=== PATIENT | male | born 2005 | race African-American/Black ===

== ENCOUNTER 2024-01-03 12:46 | Emergency (ER) | payer MEDICAID, SELFPAY ==
[2024-01-03 12:46] VITALS: BP 120/79; PULSE 89; RESP 16; TEMP 36.6; O2SAT 99; BMI 35.4
--- NOTE | 2024-01-03 13:00 | RAD_ITS ---
EXAM: XR LEFT ANKLE COMPLETE, 3 OR MORE VIEWS CLINICAL INDICATION: Left ankle injury with pain and swelling during football game yesterday. TECHNIQUE: Frontal, lateral and oblique views of the left ankle. COMPARISON: No relevant prior studies available. FINDINGS: BONES/JOINTS: Unremarkable. No acute fracture. No subluxation. Normal alignment. Preservation of the joint space. No sclerotic or destructive changes observed. SOFT TISSUES: Soft tissue swelling around the ankle. No radiopaque foreign body. RAD/Ankle min 3 Views IMPRESSION: No acute fracture or dislocation of the left ankle.. Electronically Signed: Mario Masters MD at 13:23 EST ,
--- NOTE | 2024-01-03 13:09 | ED.VIS.LOWEX ---
HPI History of Present Illness Chief Complaint: Lower Extremity Injury Informant: patient Narrative Narrative: 18-year-old male presenting to the emergency room with a chief complaint of left ankle injury. Patient states he was playing football yesterday when he was tackled sustaining injury to the distal medial left leg. He denies any pain up near his knee. He notes swelling. Has been using Lopez wrap. Was recommended he obtain x-rays. He has been able to bear weight. PFSH PFS Home Medications ?Medication ?Instructions ?Recorded ?Last Taken ?Type NK 01/03/24 Unknown History Allergy/AdvReac Type Severity Reaction Status Date / Time cashew nut Allergy Hives Verified 01/03/24 12:48 walnut Allergy HIVES Verified 01/03/24 12:48 Social History Smoking Status: Never smoker ROS ROS ED Constitutional Constitutional ED: Denies chills, fever(s) or weight loss Eyes Eyes: Denies change in vision or diplopia ENT ENT ED: Denies ear pain, rhinorrhea or sore throat Cardiovascular Cardiovascular: Denies chest pain, orthopnea, palpitations or racing heartbeat Respiratory/Chest Respiratory/Chest: Denies cough, dyspnea or orthopnea Gastrointestinal Gastrointestinal: Denies abdominal pain, diarrhea, nausea or vomiting Genitourinary Genitourinary ED: Denies dysuria, hematuria or urinary frequency Musculoskeletal Musculoskeletal: Reports other Details: See history of present illness ; Denies arthralgias or myalgias Integumentary Denies abscess or rash Neurologic Neurologic: Denies headache(s) or weakness Psychiatric Psychiatric: Denies anxiety, depression, suicidal ideation or suicidal thoughts Endocrine Endocrinology: Denies polydipsia, polyphagia or polyuria Allergic/Immunologic Allergic/Immunologic ED: Denies mouth swelling, tongue swelling or urticaria EXAM Physical Exam Const Vital Signs: 01/03/24 12:46 01/03/24 13:40 Temperature 97.9 F 97.9 F Temperature Source Oral Pulse Rate 89 89 Respiratory Rate 16 16 Blood Pressure 120/79 120/79 Blood Pressure Mean 92 92 Pulse Ox 99 99 Oxygen Delivery Method Room Air Positive well nourished and well developed General Appearance ED: well developed and NAD HEENT Reports normocephalic, head/scalp atraumatic and moist mucous membranes Eyes PERRL and EOMs intact bilaterally Neck no lymphadenopathy, supple and no JVD Resp normal respiratory effort and clear to auscultation bilaterally Cardio regular rate, regular rhythm and no murmurs GI normal to inspection, nondistended, normoactive bowel sounds and non-tender Palpation: soft Back/Spine no CVA tenderness and normal ROM Extremity Extremity Narrative: Patient has swelling and tenderness over the medial malleolus and extending down onto the medial foot. No fibular head tenderness. No fifth metatarsal pain. Achilles palpates and functionally is intact. Distally the toes are intact with no motor or sensory changes. Normal skin color. General Extremety ED: Negative for edema General Extremity: Negative for edema Neuro oriented x3 and CN's II-XII intact bilaterally Sensorium / Orientation: alert Motor Exam: strength 5/5 throughout Psych mental status grossly normal Mood & Affect: Negative for depressed or tearful Skin no rashes or lesions noted and no wounds MDM MDM MDM Narrative Medical decision making narrative: Differential diagnosis includes but not limited to fracture ligamentous injury tendon injury neurovascular injury My independent interpretation of the plain films of the left ankle is soft tissue swelling. No acute fracture. Radiology concurs. Patient was placed in an air splint. Would recommend follow-up 10 to 14 days. He will be speaking with his physical fitness trainer regarding the x-rays. History & Record Review Discussion w/independent historian: Patient Radiography Diagnostic Testing: Clinical Impression(s) from Imaging Studies Ankle X-Ray 01/03/24 13:00 IMPRESSION: No acute fracture or dislocation of the left ankle.. Electronically Signed: Mario Masters MD at 13:23 EST Reading Location ID and State: [address] [place] [address] , Service support , Discharge Plan Triage Chief Complaint: Lower Extremity Injury ED Provider: Gilson Cardozo Dx/Rx/DC Orders Clinical Impression: Ankle sprain, Acute ankle pain Instructions: ED Ankle Sprain (Adult) Prescriptions: No Action NK Primary Care Provider: ELIAS JACK Referrals: [facility] Doctor,Out of [Non-Staff] - Print Language: Lithuanian Disposition Disposition: Home, Self Care Discharge Date/Time: 01/03/24 13:41
[2024-01-03 13:40] VITALS: BP 120/79; PULSE 89; RESP 16; TEMP 36.6; O2SAT 99
== END 2024-01-03 13:41 | disposition home or self-care (01) ==
LOC: ED 13:31
PROVIDERS: Emergency Provider Emergency Medicine; Visit Provider Emergency Medicine
DX: S93.402A Sprain of unspecified ligament of left ankle, initial encounter (principal); W50.0XXA Accidental hit or strike by another person, initial encounter; Y93.61 Activity, american tackle football
CPT/HCPCS: 73610; 99283